=== PATIENT | male | born 1990 | race Caucasian/White ===

== ENCOUNTER 2016-07-26 17:24 | Emergency (ER) | payer OTHER ==
[2016-07-26 17:34] VITALS: BP 141/86; BMI 28.2
[2016-07-26] MEDS ORDERED: STERILE WATER IRRIGATION IR ONE (17:34)
[2016-07-26] MEDS ORDERED: ADACEL TDaP IM ONE ×2 (17:41→17:42)
[2016-07-26] MEDS ORDERED: TORADOL 60 MG VIAL IM ONE ×2 (17:50→19:46)
--- NOTE | 2016-07-26 17:50 | DR.GENAD ---
HPI - PCP Primary Care Physician: nfd - Complaint/Symptoms Chief Complaint Doctors Comments: States he stepped on a cow panel and the nail went into his foot about 30 minutes ago. States the pain is 7 of 10 and is worst when he walks. State he pulled the nail out of his foot. He does not know the last time he had a tetanus shot. He is a patient of Dr. Mehta but has not seen him in years. He denies fever, chills, nausea or vomiting. Chief Complaint:: patient stepped on a cow panel wire and a 3 inch section went through his right foot. - Nurses notes reviewed Nurses Notes Review: Yes - Source History Provided: Patient - Mode of Arrival Mode of Arrival: Ambulatory - Timing Onset of Chief Complaint: 07/26/16 Came on: Suddenly - Duration Duration: Constant How lon Duration: Hours - Severity Severity: Severe - Modifying Factors Worsens:: movement and walking Improves:: elevating foot and rest PMH - PMH Past Medical History: No Past Surgical History: No - Family History History of Family Medical Conditions: No - Social History Does patient currently use any type of tobacco product: No Have you used tobacco products in the last 12 months: No Type of Tobacco Use: None Does any household member use tobacco: Yes Alcohol Use: None Do you use any recreational Drugs:: No Lives With: Family Lives Where: Home - infectious screening In the last 2 months have you had wt loss of >10#?: NO Have you had fever, night sweats or hemotysis?: No Have you traveled outside the country in the last 6 months?: No Isolation: Standard ROS - Review of Systems Constitutional: No Symptoms Reported Eyes: No Symptoms Reported ENTM: No Symptoms Reported Respiratoy: No Symptoms Reported Cardiovascular: No Symptoms Reported Gastrointestinal/Abdominal: No Symptoms Reported. negative: See HPI, Abdominal Pain, Constipation, Diarrhea, Nausea, Vomiting, Food Intolerance, Other Genitourinary: No Symptoms Reported Neurological: No Symptoms Reported, Problems Walking (right foot pain) Musculoskeletal: No Symptoms Reported, Right, Foot (puncture wound right foot) Integumentary: No Symptoms Reported, Wound (right foot with puncture wound) Hematologic/Lymphatic: negative: No Symptoms Reported, See HPI, Anemia, Blood Clots, Easy Bleeding, Easy Bruising, Swollen Glands, Lymphadenopathy, Other Endocrine: No Symptoms Reported. negative: See HPI, Excessive Sweating, Flushing, Intolerance to Cold, Intolerance to Heat, Increased Hunger, Increased Thirst, Increased Urine, Unexplained Weight Gain, Unexplained Weight Loss, Failure to Thrive, Decreased Appetite, Other Psychiatric: No Symptoms Reported. negative: See HPI, Anxiety, Depression, Hallucinations, Excessive crying, Suicidal, Other PE - Vital Signs Vitals: Pulse Rate 91 Respiratory Rate 16 Blood Pressure 141/86 - General Limitations: No Limitations General Appearance: Alert, In Distress (moderate) - Head Head Exam: Normal Inspection, Atraumatic, Normocephalic - Eyes Eye exam: Normal Appearance, PERRL, EOMI. negative: Scleral Icterus, Conjunctival Injection, Nystagmus, Miosis, Mydrasis, Periorbital Swelling, Periorbital Tenderness, Other - ENT ENT Exam: Normal Exam, Normal Oropharynx, Normal External Ear Exam, Mucous Membranes Moist, TM's Normal Bilaterally External Ear Exam: Normal External Inspection TM/Canal Exam: Bilateral Normal Nose Exam: Normal Nose Exam Mouth Exam: Normal Inspection Throat Exam: Normal Inspection. negative: Tonsillar Erythema, Tonsillomegaly, Tonsillar Exudate, R Peritonsillar Mass, L Peritonsillar Mass, Muffled Voice, Other - Neck Neck Exam: Normal Inspection, Full ROM, Trachea Midline. negative: Tenderness, Meningismus, Lymphadenopathy, Thyromegaly, Other - Chest Chest Inspection: Normal Inspection, Symmetric Chest Wall Rise - Respiratory Respiratory Exam: Normal Lung Sounds Bilat, Accessory Muscle Use Respiratory Exam: Bilateral Clear to Auscultation - Cardiovascular Cardiovascular Exam: Regular Rate, Normal Rhythm, Normal Heart Sounds - Abdominal Exam Abdominal Exam: Normal Inspection, Normal Bowel Sounds, Soft Abdominal Tenderness: negative: RUQ, RLQ, LUQ, LLQ, Epigastrium, Suprapubic, Diffuse, Mild, Moderate, Severe, Other - Extremities Extremities Exam: Normal Inspection, Full ROM, Tenderness (right heel tender with puncture wound), Normal Capillary Refill. negative: Edema, Joint Swelling , Calf Tenderness, Other - Back Back Exam: Normal Inspection, Full ROM. negative: Tenderness, (R) CVA Tenderness, (L) CVA Tenderness, Muscle Spasm, Paraspinal Tenderness, Vertebral Tenderness, Rashes, (R) Sciatic Notch Tenderness, (L) Sciatic Notch Tendern, (R ) Straight Leg Raise, (L) Straight Leg Raise, Other - Neurologic Neurological Exam: Alert, Oriented X3, CN II-XII Intact, Reflexes Normal. negative: Normal Gait (right foot pain) - Psychiatric Psychiatric Exam: Normal Affect, Normal Mood - Skin Skin Exam: Warm, Dry, Intact, Normal Color ROR - Labs Reviewed Laboratory Results Reviewed?: Yes (all x-ray results reviewed and discussed with patient) - XRAY XRAY Interpreted by: Radiologist (right foot: No significant abnormality.) - Diagnosis Discharge Problem: Right foot pain Puncture wound of right foot Qualifiers: Encounter type: initial encounter Qualified Code(s): S91.331A - Puncture wound without foreign body, right foot, initial encounter - Discharge Plan Disposition: HOME, SELF-CARE Condition: Stable Prescriptions: Amoxicillin & Pot Clavulanate [AUGMENTIN TAB 875 mg/125 mg *] 1 tab PO BID #20 tab Ibuprofen [Motrin Tab 800 mg] 800 mg PO BID PRN #60 tab PRN Reason: Pain/Inflammation - Follow ups/Referrals Follow ups/Referrals: [facility],None [Primary Care Provider] - 3 days TYLER VARGAS [STAFF PHYSICIAN] - 3 days - Instructions Instructions: Puncture Wound, Foot Contusion
--- NOTE | 2016-07-26 19:41 | RAD ---
Right foot, three views Indication: Right heel pain after stepping on a wire Comparison: None Findings: No soft tissue gas or radiopaque foreign body identified. There is no cortical disruption or malalignment. The joint spaces are intact. No bony erosions are seen. Impression: No significant abnormality. Reported By:
[2016-07-26] MEDS ORDERED: ROCEPHIN VIAL 1 GM IM ONE (19:46)
[2016-07-26] MEDS ORDERED: TORADOL 60 MG VIAL ONE (19:49)
[2016-07-26] MEDS ORDERED: ROCEPHIN VIAL 1 GM ONE (19:49)
[2016-07-26] MEDS ORDERED: BACTROBAN OINT ONE (20:03)
== END 2016-07-26 20:10 | disposition home or self-care (01) ==
LOC: ER 17:33
DX: S91.331A Puncture wound without foreign body, right foot, initial encounter (principal); M79.671 Pain in right foot; W45.8XXA Other foreign body or object entering through skin, initial encounter; Y92.9 Unspecified place or not applicable
CPT/HCPCS: 73630; 90471; 96372; 99283; A4217; J0696; J1885